=== PATIENT | male | born 2000 | race Caucasian/White ===

== ENCOUNTER 2021-02-09 13:09 | Emergency (ER) | payer SELFPAY ==
[2021-02-09] MEDS ORDERED: Lidocaine 1% 10 ML MDV INJECT ONE (14:52)
[2021-02-09] MEDS ORDERED: Diphtheria,Pertussis(Acell),Tetanus Vaccine 0.5 ML Syringe IM ONE (14:52)
--- NOTE | 2021-02-09 14:55 | EDM.PDOC ---
ED HPI GENERAL MEDICAL PROBLEM - General Chief Complaint: Laceration Stated Complaint: FOOT LAC Time Seen by Provider: 02/09/21 14:33 Source of Information: Reports: Patient History Limitations: Reports: No Limitations - History of Present Illness INITIAL COMMENTS - FREE TEXT/NARRATIVE: 20-year-old male presents the emergency department with a laceration noted to the dorsal aspect of the left fourth toe. Patient states he was in the shower and tripped and fell and believes that the force of bending his toe caused him to have a laceration. 1 cm laceration is noted on the dorsal aspect of the toe just below the toenail. Bleeding is controlled. Left Toe-Ring Pain Score (Numeric/FACES): 5 - Related Data Allergies Allergy/AdvReac Type Severity Reaction Status Date / Time No Known Allergies Allergy Verified 02/09/21 14:36 Home Meds: Home Meds . [No Known Home Meds] 02/09/21 [History] ED ROS GENERAL - Review of Systems Review Of Systems: Comprehensive ROS is negative, except as noted in HPI. ED EXAM, SKIN/RASH Exam: See Below Exam Limited By: No Limitations General Appearance: Alert, WD/WN, No Apparent Distress Ears: Normal External Exam, Hearing Grossly Normal Nose: Normal Inspection Throat/Mouth: Normal Inspection, Normal Lips, Normal Voice, No Airway Compromise Head: Atraumatic Neck: Normal Inspection, Supple Respiratory/Chest: No Respiratory Distress, No Accessory Muscle Use Cardiovascular: Normal Peripheral Pulses, Regular Rate, Rhythm GI/Abdominal: No Distention (Male) Exam: Deferred Rectal (Males) Exam: Deferred Back Exam: Normal Inspection Extremities: Normal Range of Motion, No Pedal Edema, Normal Capillary Refill, Other (1 cm laceration noted to dorsal aspect of left fourth toe) Neurological: Alert, Oriented, Normal Cognition Psychiatric: Normal Affect, Normal Mood Skin: Warm, Dry, Normal Color, No Rash, Wound/Incision (1 cm laceration noted to dorsal aspect of left fourth toe) Location, Skin: Lower Extremity, Left Characteristics: Linear Lymphatic: No Adenopathy ED SKIN PROCEDURES - Laceration/Wound Repair Left Lower Toe - Fourth Appearance: Superficial Anesthetic Type: Local Local Anesthesia - Lidocaine (Xylocaine): 1% Plain Local Anesthetic Volume: 1cc Closed with: Sutures Lac/Wound length In cm: 1 Suture Size: 5-0 # of Sutures: 5 Suture Type: Nylon, Interrupted Course - Vital Signs Text/Narrative:: As stated above, patient presents with a 1 cm laceration noted dorsal aspect of left fourth toe. Bleeding is controlled. Will require suturing. I have order ed the patient to receive a tetanus shot. Last Recorded V/S: Last Vital Signs Temp 98.5 F 02/09/21 14:33 Pulse 88 02/09/21 14:33 Resp 18 02/09/21 14:33 BP 125/85 02/09/21 14:33 Pulse Ox 98 02/09/21 14:33 - Orders/Labs/Meds Orders: Active Orders 24 hr Category Date Time Status Vaccine to be Administered/Admin Charge [RC] ASDIRECTED Care 02/09/21 14:52 Active Meds: Medications Discontinued Medications Generic Name Dose Route Start Last Admin Trade Name Freq PRN Reason Stop Dose Admin Diphtheria/Tetanus/Acell Pertussis 0.5 ml 02/09/21 14:52 02/09/21 15:08 Diphtheria,Pertussis(Acell),Tetanus Vaccine 0.5 Ml Syringe IM 02/09/21 14:53 0.5 ml .ONCE ONE Administration Lidocaine HCl 10 ml 02/09/21 14:52 02/09/21 15:04 Lidocaine 1% 10 Ml Mdv INJECT 02/09/21 14:53 10 ml ONETIME ONE Administration - Re-Assessments/Exams Free Text/Narrative Re-Assessment/Exam: 02/09/21 15:21 Wound was prepped and draped in sterile fashion and 5 sutures were placed. Local anesthetic injected prior to suturing. Patient tolerated the procedure well. Departure - Departure Time of Disposition: 15:22 Disposition: Home, Self-Care 01 Condition: Good Clinical Impression: Laceration of toe of left foot Qualifiers: Encounter type: initial encounter Toe: lesser toe Damage to nail status: without damage Foreign body presence: without foreign body Qualified Code(s): S91.115A - Laceration without foreign body of left lesser toe(s) without damage to nail, initial encounter - Discharge Information Instructions: Laceration Care, Adult, [id number], Sutures, [place], or Adhesive Wound Closure, [id number] Referrals: PCP,Not In Area [Primary Care Provider] - Forms: ED Department Discharge Additional Instructions: You were seen in the emergency department with a laceration of your left fourth toe. You did receive your tetanus shot while in the emergency department today. Make note of this somewhere in your records as these are good for 10 years. Laceration was repaired with 5 sutures. These will need to come out in 10 to 12 days time. Leave the dressing in place for 24 hours. Once the dressing is removed make sure you wash the area twice daily with mild soap such as Dial or Ray's baby shampoo, pat the wound dry and apply a thin film of bacitracin and a new dressing. Watch for any signs and symptoms of infection such as increased warmth, redness, swelling or pus. Sepsis Event Note (ED) - Evaluation Sepsis Screening Result: No Definite Risk - Focused Exam Vital Signs: Vital Signs Temp Pulse Resp BP Pulse Ox 02/09/21 14:33 98.5 F 88 18 125/85 98 - My Orders Last 24 Hours: My Active Orders 02/09/21 14:52 Vaccine to be Administered/Admin Charge [RC] ASDIRECTED - Assessment/Plan Last 24 Hours: My Active Orders 02/09/21 14:52 Vaccine to be Administered/Admin Charge [RC] ASDIRECTED
== END 2021-02-09 15:46 | disposition home or self-care (01) ==
LOC: JD.ED 13:09
DX: S91.115A Laceration without foreign body of left lesser toe(s) without damage to nail, initial encounter (principal); Z23 Encounter for immunization; W01.0XXA Fall on same level from slipping, tripping and stumbling without subsequent striking against object, initial encounter; Y92.002 Bathroom of unspecified non-institutional (private) residence as the place of occurrence of the external cause
CPT/HCPCS: 12001; 90471; 90715; 99282-25